=== PATIENT | male | born 1955 | race Caucasian/White ===

== ENCOUNTER 2018-09-22 07:58 | Day surgery (SDC) | payer OTHER ==
[~2018-09-22 07:58] MED LIST: LABETALOL HCL 20MG INJ; LIDOCAINE 2% (SDV) 5 ML INJ
[2018-09-22] MEDS ORDERED: CEFAZOLIN 2 GM/50 ML (PMX) 50 ML IVPB (08:00)
[2018-09-22] MEDS ORDERED: SOD CHLORIDE 0.9% 1,000 ML IV (08:00)
[2018-09-22] MEDS ORDERED: DEXAMETHASONE 4 MG/ML 5 ML INJ (10:41)
[2018-09-22] MEDS ORDERED: ROCURONIUM 50 MG INJ (10:41)
[2018-09-22] MEDS ORDERED: SUCCINYLCHOLINE CHLORIDE 100 MG/5 ML SYG IV (10:41)
[2018-09-22] MEDS ORDERED: FENTAnyl 50 MCG/ML VIAL ×2 (10:41→11:37)
[2018-09-22] MEDS ORDERED: ONDANSETRON 4 MG INJ (10:41)
[2018-09-22] MEDS ORDERED: MIDAZOLAM 1 MG/ML 2 ML INJ (10:41)
[2018-09-22] MEDS ORDERED: PROPOFOL 20 ML (10:41)
[2018-09-22] MEDS ORDERED: CEFAZOLIN 1 GM INJ (10:47)
[2018-09-22] MEDS ORDERED: HYDROCODONE/APAP (5/325) TAB PO ×2 (11:00)
[2018-09-22] MEDS ORDERED: METOCLOPRAMIDE 10 MG INJ (11:00)
[2018-09-22] MEDS ORDERED: SUGAMMADEX SODIUM 200 MG/2 ML VIAL IV (11:01)
[2018-09-22] MEDS: BUPIVACAINE 0.5%/EPI (SDV) 30 ML INJ (11:18)
[2018-09-22] MEDS: LIDOCAINE 1% (MPF) 30 ML INJ (11:18)
[2018-09-22] MEDS: HYDROmorphONE 1 MG/5 ML IV SYRINGE IV ×5 (12:18→12:46)
[2018-09-22] MEDS ORDERED: FENTAnyl 50 MCG/ML VIAL IV (12:30)
[2018-09-22] MEDS ORDERED: morphine (1 MG/ML) 10ML SYRINGE IV (12:30)
[2018-09-22] MEDS: ONDANSETRON 4 MG INJ IV (12:51)
== END 2018-09-22 14:40 | disposition home or self-care (01) ==
LOC: SDS 07:58
DX: K43.6 Other and unspecified ventral hernia with obstruction, without gangrene (principal); E11.9 Type 2 diabetes mellitus without complications; I10 Essential (primary) hypertension; E78.00 Pure hypercholesterolemia, unspecified; Z79.84 Long term (current) use of oral hypoglycemic drugs
CPT/HCPCS: 49561; 82962; 88302